=== PATIENT | male | born 1955 | race Caucasian/White ===

== ENCOUNTER 2019-03-03 12:48 | Day surgery (SDC) | payer OTHER ==
[2019-02-26 11:33] LABS: BASOPHILS % (AUTO) 0.9 % (0-1); EOSINOPHILS # (AUTO) 0.1 X10'3 (0-0.9); EOSINOPHILS % (AUTO) 1.2 % (0-6); LYMPHOCYTES % (AUTO) 39.3 % (21-51); MEAN CORPUSCULAR HEMOGLOBIN 33.3 PG (27.0-31.0); MEAN PLATELET VOLUME 6.6 FL (7.4-10.4); MONOCYTES # (AUTO) 0.4 X10'3 (0-0.9); MONOCYTES % (AUTO) 8.7 % (2-12); NEUTROPHILS # (AUTO) 2.5 X10'3 (1.8-7.7); NEUTROPHILS % (AUTO) 49.9 % (42-75); PRE OP HEMATOCRIT 40.8 % (42.0-52.0); PRE OP HEMOGLOBIN 13.9 g/dL (14.0-17.9); PRE OP PLATELET COUNT 326 X10'3 (140-440); RED BLOOD COUNT 4.17 X10'6 (4.70-6.10); RED CELL DISTRIBUTION WIDTH 13.4 % (11.5-14.5)
[2019-02-26 12:01] LABS: ALBUMIN/GLOBULIN RATIO 1.1 (1.1-1.5); ALKALINE PHOSPHATASE 66 IU/L (46-116); BLOOD UREA NITROGEN 20 MG/DL (7-18); BUN/CREATININE RATIO 13.5 (5.4-32.0); CALCIUM 9.2 MG/DL (8.5-10.1); CHLORIDE 105 MMOL/L (99-107); CREATININE 1.48 MG/DL (0.60-1.10); PRE OP ALT 29 U/L (30-65); PRE OP ANION GAP 7 (8-16); PRE OP AST 18 U/L (10-37); PRE OP BILIRUB, TOTAL 0.3 MG/DL (0.0-1.0); PRE OP GLUCOSE 101 MG/DL (70-104); PRE OP POTASSIUM 4.7 MMOL/L (3.4-5.1); PRE OP SODIUM 138 MMOL/L (135-145); TOTAL PROTEIN 7.6 G/DL (6.4-8.2); eGFR 48 ML/MIN
[~2019-03-03] VITALS: Ht 172.7 cm; Wt 86.0 kg
[2019-03-03] VITALS (20 sets, daily range): BP systolic 87–143; BP diastolic 55–74
[~2019-03-03 12:48] MED LIST: CELE-193 PO; ELET40TA PO; ESOM40CA PO; EZET10TA21 PO; FLO0.4C PO; LISI-600 PO; LOVA20TA2 PO; MORP-92 PO; NORT25CA5 PO
[2019-03-03] MEDS ORDERED: cefazolin/dext.iso 2gm/100 ML IV ONE (13:00)
[2019-03-03] MEDS ORDERED: famotidine 20mg tablet PO ONE (13:00)
[2019-03-03] MEDS ORDERED: ringers solution, lacted 1,000 ML IV SCH (13:00)
[2019-03-03] MEDS ORDERED: VANCOMYCIN INJ 1000 MG in NORMAL SALINE 250ml IV.SOLN IV ONE (13:00)
[2019-03-03] MEDS ORDERED: dextrose 5%-lactated ringers 1,000 ML IV SCH (14:15)
--- NOTE | 2019-03-03 15:10 | NUR ---
(7586) ACCUCHECK 63. PT ASYMPTOMATIC. DR WHITE NOTIFIED. REPEAT ACCUCHECK 89 POST D5LR 200ML BOLUS ORDERED.
[2019-03-03 15:42] LABS: ALBUMIN 3.5 G/DL (3.4-5.0); ANION GAP 7 (8-16); BLOOD UREA NITROGEN 39 MG/DL (7-18); BUN/CREATININE RATIO 22.7 (5.4-32.0); CALCIUM 8.4 MG/DL (8.5-10.1); CHLORIDE 106 MMOL/L (99-107); CREATININE 1.72 MG/DL (0.60-1.10); GLUCOSE 98 MG/DL (70-104); POTASSIUM 4.8 MMOL/L (3.5-5.1); SODIUM 138 MMOL/L (135-145); TOTAL CARBON DIOXIDE 25.1 MMOL/L (24-32); eGFR 40 ML/MIN
[2019-03-03] MEDS ORDERED: ePHEDrine 50MG/ML INJ. ONE (16:04)
[2019-03-03] MEDS ORDERED: MIDAZolam 5mg/5ml vial ONE (16:07)
[2019-03-03] MEDS ORDERED: fentaNYL/PF 50MCG/1 ML 2ML syringe ONE (16:07)
[2019-03-03] MEDS ORDERED: ROPIVAcaine 0.5% (5mg/ml) 30ml vial ONE ×2 (17:32→17:58)
--- NOTE | 2019-03-03 18:01 | NUR ---
Received from OR via [facility] , accompanied by Anesthesiologist CINDY and report given by Anesthesiolgist. PATIENT WITH 20G PIV IN RIGHT UE RUNNING D5 1/2 NS AT THIS TIME. + DORSALIS PEDIS. DENIES PAIN. SENSATION AT L1 FROM SPINAL ANESTHESIA. DIPTI DAVID PLACED FOR TEMP OF 36'. Addendum: 03/03/19 at 1821 by Mick Mueller RN, RN Amended: Links added.
--- NOTE | 2019-03-03 19:41 | NUR ---
ALL CRITERIA FOR TRANSFER TO THE FLOOR HAS BEEN ACHIEVED. VSS. BED LOW, CALL LIGHT AND VS. SET IN PLACE. RN PRESENT TO ACCEPT CARE. PATIENT RESTING COMFORTABLY IN BED. BELONGINGS SENT WITH PATIENT. DRESSINGS CDI. VSS. NISHA DOYLE PRESENT TO ACCEPT CARE. PATIENT PASSIVELY SLID TO BED WITH 3 PERSON ASSIST. ROLLED AND POSITIONED TO COMFORT. PATIENT SENSATION LEVEL STILL AT L1 CURRENTLY. VSS. LEFT KNEE DRESSING IS CDI. Addendum: 03/03/19 at 2001 by Mick Torres - NISHA CAMERON Amended: Links added.
--- NOTE | 2019-03-03 20:00 | NUR ---
Report rec'd from angie Barton. Pt arrived on floor via gurney and transferred to bed via slide board and three attendants. Pt positioned for comfort, VSS, still unable to void, cannot wiggle feet, no sensation to upper thigh. will continue to monitor.
[2019-03-03] MEDS ORDERED: ondansetron/PF 4mg/2ml inj IV PRN (20:50)
--- NOTE | 2019-03-03 20:52 | NUR ---
Notified Dr. Arce that pt is staying the night. Pt with be discharged home first this in am.
--- NOTE | 2019-03-04 00:11 | NUR ---
pt unable to void, bladder scan 580ml, straight cath output 525ml clear yellow urine.
[2019-03-04] MEDS ORDERED: imipramine 25mg tablet PO PRN (01:10)
[2019-03-04] MEDS ORDERED: SUMAtriptan 25 MG tablet PO PRN (01:22)
[2019-03-04 02:00] VITALS: BP 110/60
--- NOTE | 2019-03-04 02:00 | NUR ---
pt able to void via urinal, 240ml output, clear yellow urine.
[2019-03-04 06:00] VITALS: BP 101/45
--- NOTE | 2019-03-04 06:09 | NUR ---
Report given to angie Duggan.
--- NOTE | 2019-03-04 06:13 | NUR ---
Problems reprioritized. Patient report given, questions answered & plan of care reviewed with Kell CAMERON.
[2019-03-04] MEDS ORDERED: tamsulosin 0.4mg capsule PO SCH (08:00)
[2019-03-04] MEDS ORDERED: pantoprazole 40mg Tablet.DR PO SCH (08:00)
[2019-03-04] MEDS ORDERED: celeCOXIB 100mg capsule PO SCH (08:00)
[2019-03-04] MEDS ORDERED: lisinopril 20mg tablet PO SCH (08:00)
[2019-03-04] MEDS ORDERED: ezetimibe 10mg tablet PO SCH (08:00)
[2019-03-04] MEDS ORDERED: morphine ER 15mg tablet PO SCH (08:00)
[2019-03-04 10:00] VITALS: BP 100/51
[2019-03-04] MEDS ORDERED: nortriptyline 25mg capsule PO SCH (21:00)
[2019-03-04] MEDS ORDERED: atorvastatin 10mg tablet PO SCH (21:00)
== END 2019-03-04 11:45 | disposition home or self-care (01) ==
LOC: PAS 12:48 → ORTHO 4S 20:42 → UNDOADMOB 20:42 → PAS 03-04 11:45 → UNDODISOB 03-04 11:45
PROVIDERS: ATTEND Orthopaedic Surgery
DX: T84.84XA Pain due to internal orthopedic prosthetic devices, implants and grafts, initial encounter (principal); K21.9 Gastro-esophageal reflux disease without esophagitis; E78.5 Hyperlipidemia, unspecified; I10 Essential (primary) hypertension; M17.5 Other unilateral secondary osteoarthritis of knee; N40.0 Benign prostatic hyperplasia without lower urinary tract symptoms; G89.18 Other acute postprocedural pain; G43.909 Migraine, unspecified, not intractable, without status migrainosus; G89.29 Other chronic pain; Z88.1 Allergy status to other antibiotic agents; Z88.8 Allergy status to other drugs, medicaments and biological substances; Z79.899 Other long term (current) drug therapy; Y83.8 Other surgical procedures as the cause of abnormal reaction of the patient, or of later complication, without mention of misadventure at the time of the procedure; Y92.89 Other specified places as the place of occurrence of the external cause
CPT/HCPCS: 29884; 36415; 64447; 80048; 80053; 82948; 85025; J2250; J3010; J3370; J7121; A4215; A6449; A7000; G0378; J2795; J7120

== ENCOUNTER 2019-03-09 21:34 | Emergency (ER) | payer OTHER ==
[~2019-03-09] VITALS: Ht 172.7 cm; Wt 81.8 kg
[2019-03-09 21:36] VITALS: BP 158/80
== END 2019-03-09 22:11 | disposition home or self-care (01) ==
LOC: ER 21:34
DX: T81.89XA Other complications of procedures, not elsewhere classified, initial encounter (principal); Z98.890 Other specified postprocedural states; Z88.1 Allergy status to other antibiotic agents; Z88.8 Allergy status to other drugs, medicaments and biological substances; Z79.2 Long term (current) use of antibiotics; Z79.899 Other long term (current) drug therapy; Y83.8 Other surgical procedures as the cause of abnormal reaction of the patient, or of later complication, without mention of misadventure at the time of the procedure; Y92.89 Other specified places as the place of occurrence of the external cause
CPT/HCPCS: 99281